=== PATIENT | female | born 1940 | race Caucasian/White ===

== ENCOUNTER 2025-05-18 14:11 | Outpatient (AMB) | payer MEDICARE, OTHER, SELFPAY ==
--- NOTE | 2025-05-18 14:12 | A.PHYSOV_ITS ---
Vital Signs 05/18/25 14:14 Height 5 ft 2 in Weight 150 lb BMI 27.4 Intake Visit Reasons: PT not working- discuss scheduling injection Intake Note: Patient is a 84 years old female here today to discuss having an injection. Physical therapy is not helping. In Flight Crew Member Required: No Allergies latex Allergy (Unknown, Verified 05/18/25 14:16) Unknown ciprofloxacin (From Cipro) Allergy (Verified 05/18/25 14:16) Unknown HPI Comments Details: History of Present Illness The patient is an 84 year old female presenting for evaluation of chronic low back pain. Her pain has recently worsened, now described as located centrally across the lower back and sometimes on the right side, which differs from her previous left-sided symptoms. She reports a recent episode where the pain was so severe she was unable to walk. Patient underwent transforaminal injection 2 years ago very good relief of her symptoms. Unfortunately interlaminar injection was not helpful. Her history is significant for a prior left-sided injection on 's Day of the previous year which provided her with significant relief for approximately two years. A subsequent central interlaminar injection in May was not effective. 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 She was previously advised by another physician that she is not a candidate for surgery due to the extensive damage in her back. The patient is currently attending physical therapy, which she finds helpful. For self-management of pain, she has used Tylenol and aspirin with intermittent effectiveness. She has a history of transient ischemic attacks (TIAs) and has stopped taking her aspirin in anticipation of a potential procedure. Her pain level today is a 7/10 she would like to consider repeat epidural injection. Results - MRI Lumbar Spine: Shows severe interneural foraminal stenosis on the left at L4-L5. [facility] Surgical History History of cancer surgery Social History Alcohol intake: current Alcohol intake frequency: does not drink Patient Tobacco Use Status: Never used Tobacco Review of Systems Narrative Review of Systems - Musculoskeletal: Reports worsening low back pain, described as centrally located and sometimes on the right side. - Denies her arthritic pain is as severe as her nerve pain. - Reports recent severe pain that impeded her ability to walk. - Neurological: Reports a history of left-sided sciatica but states her current pain is primarily in the low back rather than the leg. Physical Exam Exam Exam: Physical Exam Lumbar Spine: Examination of the lumbar spine, there is no visible swelling or deformity. She is tender to lower lumbar facets. She is otherwise nontender. Full range of motion of the lumbar spine. She does have an increase in pain wit h facet loading. Special Tests: Lhermittes sign was negative Heel Toe walk is normal Left straight leg raise: Negative Right straight leg raise: Positive right Special tests Wagner test is negative Ganslen's test is negative SI Joint compression test negative Juanito test negative Piriformis stretch is negative Lower Extremities: Full range of motion bilateral lower extremities. No calf pain or edema. Neuro: Sensation: Intact to lower extremities bilaterally Strength L2 (Psoas): 5/5 on the left and 5/5 on the right. L3 (Quads): 5/5 on the left and 5/5 on the right. L4 (Ant tibialis): 5/5 on the left and 5/5 on the right. L5 (EHL) 5/5 on the left and 5/5 on the right. S1 (Gastroc): 5/5 on the left and 5/5 on the right. DTR L4: (Patellar) Left 2 Right 2 S1: (Achilles) Left 2 Right 2 Babinski Downgoing No pathologic clonus. No involuntary movement. Vital Signs: BMI result Body Mass Index 27.4 Assessment & Plan Assessment & Plan (1) Lumbar radiculopathy: Code(s): M54.16 - Radiculopathy, lumbar region Category: Medical (2) Lumbar spondylosis: Code(s): M47.816 - Spondylosis without myelopathy or radiculopathy, lumbar region Category: Medical Plan Plan Patient was informed and verbally consented to the use of an ambient scribe for clinic note documentation during this visit. 1. 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 Given her history of a successful left-sided transforaminal epidural steroid injection and an unsuccessful central interlaminar injection, a bilateral L4-L5 transforaminal epidural steroid injection is proposed to address her current symptoms. This approach aims to replicate the previously effective procedure while also targeting potential pain sources on both sides. The option of performing the procedure under sedation was discussed due to the high likelihood of procedural pain, especially since it involves two separate injections. The patient will consider this option and will call the office to schedule if she chooses to proceed. She has been instructed to remain off aspirin for seven days prior to the procedure if she decides to have it done. Discussion Notes I discussed with the patient that her current pain is more central and sometimes on the right, which is different from the left-sided pain that was previously relieved by a transforaminal injection. I explained that because a prior central injection was ineffective, I recommend a bilateral transforaminal epidural steroid injection at L4-5 to target the nerve roots on both sides, which is more likely to address her current pain pattern. We had a detailed discussion regarding the procedure itself, and I noted that there is a high potential for pain during the injection, especially since it would be performed twice (once on each side). I offered the option of having the procedure done with sedation for comfort, which she seemed to prefer. I clearly stated that there is no guarantee of success or duration of relief, referencing her past experiences where one injection worked well and another did not. The patient was not ready to make a decision during the visit. I advised her to take time to think about it and to call the office to schedule if she decides to proceed with the bilateral injection. Patient Instructions - We discussed treating your low back pain with a steroid injection procedure on both the left and right sides of your lower back. - This is a similar type of shot to the one that worked well for you in the past. - Because this procedure can be painful, we talked about the option of having it done with sedation (being asleep ) to keep you comfortable. - Please be aware that there is no guarantee this procedure will relieve your pain or for how long. - Take your time to decide if you want to have this procedure. There is no need to ramos. - If you decide to go forward with the injection, please call our office to schedule it. - If you schedule the injection, you must stop taking aspirin 7 days before your appointment. - Continue with your physical therapy, as you have found it to be helpful. Coding Level of Care Code Est Pt Level 3 (83484) Diagnoses Lumbar radiculopathy M54.16 Lumbar spondylosis M47.816
[2025-05-18 14:14] VITALS: BMI 27.4
--- OUTSIDE RECORDS SUMMARY | 2025-05-18 17:57 | XMS_ITS | Clinical Summary ---
Author Organization [facility] ity Address [address] [place] [address] Care Team Providers Care Instrument Repairer Helper Name Role Phone Neal Delgado MD Primary Care Provider [phone] Social History Tobacco Use Types Packs/Day Years Used Date Smoking Tobacco: Never Assessed Comments Unknown Sex and Gender Information Value Date Recorded Sex Assigned at Not on file Legal Sex Female 7:21 PM EST Gender Identity Not on file Sexual Orientation Not on file Plan of Treatment Health Maintenance Due Date Last Done Comments DTaP,Tdap,and Td Vaccines (1 - Tdap) 07/30/1959 Pneumococcal Vaccine: 50+ Ye ars (1 of 1 - PCV) 1990 Zoster Vaccines (1 of 2) 1990 RSV Immunization Adult Patie nts (1 - 1-dose 75+ series) 07/30/2015 Cholesterol Screening (Lipid Panel) 04/21/2022 Falls Risk Assessment 04/21/2022 Social Influencers of Health Screening 04/21/2022 Depression Screening 05/20/2024 COVID-19 Vaccine ( - 2024-2 6 season) 2025 Influenza Vaccine (#1) 2025 03/13/2013 Osteoporosis Screening (Bone Density Screening) 06/18/2033 06/18/2023 HIB Vaccines Aged Out No longer eligi ble based on patient's age to complete this topic HPV Vaccines Aged Out No longer eligi ble based on patient's age to complete this topic Hepatitis A Vaccines Aged Out No long er eligible based on patient's age to complete this topic Hepatitis B Vaccines Aged Out No long er eligible based on patient's age to complete this topic IPV Vaccines Aged Out No longer eligi ble based on patient's age to complete this topic MMR Vaccines Aged Out No longer eligi ble based on patient's age to complete this topic Meningococcal ACWY Vaccine Aged Out N o longer eligible based on patient's age to complete this topic Meningococcal B Vaccine Aged Out No l onger eligible based on patient's age to complete this topic RSV Immunization Patients Un cristina 20 months Aged Out No longer eligible b ased on patient's age to complete this topic Varicella Vaccines Aged Out No longer eligible based on patient's age to complete this topic Procedures Procedure Name Priority Date/Time Associated Diagnosis Comments [facility] DEXA AXIAL SKELETON Routine 06/18/2023 11:27 AM EST Age-related osteoporosis without current pathological fracture from Last 3 Months or Most Recently Relevant to Health Maintenance Results * [facility] DEX[facility] AXIAL SKELETON (06/18/2023 11:27 AM EST) Anatomical Region Laterality Modality Mammography 06/18/2023 10:3 4 AM EST Narrative 06/18/2023 11:27 AM EST [facility] Diagnostic Imaging Department [address] [place] [address] Patient: JOSEPHINE SALMON Delfino /Age/Sex: 1940 - 82 - F Unit#: [id number] Location/Status: [facility]/REG CLI Mnemonic/Ordering Site: [facility]X/SP[facility]AM Ordering Physician: SHYAM PACHECO MD [facility] Dexa Axial Skeleton - 06/18/23 - 1110 Report Status:Signed HISTORY: The patient is an 82-year-old postmenopausal female with clinical concern for metabolic bone disease. FINDINGS: Dual energy x-ray absorptiometry of the lumbar spine and femurs is performed. The mean bone mineral density at L2-3 is 0.725 gm/cm2 which is 60% of that of young normals and 73% of that of age matched controls. This yields a T- score of -4.0 and a Z-score of -2.2 which is diagnostic of osteoporosis. The mean bone mineral density of the femurs bilaterally is 0.720 gm/cm2 which is 71% of that of young normals and 96% of that of age matched controls. This yields a T-score of -2.3 and a Z-score of -0.2 which is diagnostic of osteopenia. However, the T-score of the left femoral neck is -2.5 which is diagnostic of osteoporosis. IMPRESSION: 1. Osteoporosis. There has been a decrease of 7.5% in bone mineral density in the lumbar spine since the prior examination of 10/08/2014. There has been an increase of 1.2% in bone mineral density in the right femur and a decrease of 3.3% in bone mineral density in the left femur. 2. FRAX analysis yields a 10-year probability of major osteoporotic fracture of 42.6% and a 10-year probability of hip fracture of 29.0%. Code 39615 Dictating Physician: IVONE HUERTA MD Electronically Signed by: IVONE HUERTA MD Dic Date/Time: 06/18/23 1125 Sign date/Time: 06/18/23 1127 Procedure Note Ivone Huerta MD - 01/06/2024 [facility] Diagnostic Imaging Department [address] [place] [address] Patient: JOSEPHINE SALMON Delfino MeyersB./Age/Sex: 1940 - 82 - F Unit#: [id number] Location/Status: [facility]/REG CLI Mnemonic[facility] Ordering Physician: SHYAM PACHECO MD [facility] Dexa Axial Skeleton - 06/18/23 - 1110 Report Status:Signed HISTORY: The patient is an 82-year-old postmenopausal female withclinical concern for metabolic bone disease. FINDINGS: Dual energy x-ray absorptiometry of the lumbar spine and femursis performed. The mean bone mineral density at L2-3 is 0.725 gm/cm2 which is60% of that of young normals and 73% of that of age matched controls. This yieldsa T- score of -4.0 and a Z-score of -2.2 which is diagnostic of osteoporosis. The mean bone mineral density of the femurs bilaterally is 0.720 gm/aj0felnk is 71% of that of young normals and 96% of that of age matched controls.This yields a T-score of -2.3 and a Z-score of -0.2 which is diagnostic of osteopenia. However, the T-score of the left femoral neck is -2.5 whichis diagnostic of osteoporosis. IMPRESSION: 1. Osteoporosis. There has been a decrease of 7.5% in bone mineraldensity in the lumbar spine since the prior examination of 10/08/2014. There has beenan increase of 1.2% in bone mineral density in the right femur and a decreaseof 3.3% in bone mineral density in the left femur. 2. FRAX analysis yields a 10-year probability of major osteoporoticfracture of 42.6% and a 10-year probability of hip fracture of 29.0%. Code 65543 Dictating Physician: IVONE HUERTA MD Electronically Signed by: IVONE HUERTA MD Dic Date/Time: 06/18/23 1125 Sign date/Time: 06/18/23 1127 us Shyam Pacheco MD [facility] BI PROCEDURES Final Res ult from Last 3 Months or Most Recently Relevant to Health Maintenance Care Teams Instrument Repairer Helper Relationship Specialty Start Date End Date Neal Delgado MD [address] [place] [address] PCP - General Internal Medicine 02/05/12
--- OUTSIDE RECORDS SUMMARY | 2025-05-18 17:57 | XMS_ITS | Encounter Summary ---
Author Organization [facility] Address [address] [place] [address] Phone Care Team Providers Care Newspaper Manager Name Role Phone Neal Delgado MD Primary Care Provider + Andrew Toney MD Unavailable [phone] Elizabeth Eason MD Unavailable [phone] Geetha Clark NP Primary Care Provider Encounter Details Date Type Department Care Team (Late st Contact Info) Description 12/11/2019 Orders Only [facility] [address] [place] [address] Eryn Oliveros MD, MPH [address] [place] [address] [email or web address] Pelvic mass Social History Tobacco Use Types Packs/Day Years Used Date Smoking Tobacco: Former Cigarettes 3 20 1 957 - 1976 Smokeless Tobacco: Never Alcohol Use Standard Drinks/Week Comments No 0 (1 standard drink = 0.6 oz pur e alcohol) Quit 1976 Comments Unknown Sex and Gender Information Value Date Recorded Sex Assigned at Not on file Legal Sex Female 9:56 AM EST Gender Identity Not on file Sexual Orientation Not on file documented as of this encounter Plan of Treatment Upcoming Encounters Date Type Department Care Team (Late st Contact Info) Description 06/24/2025 3:00 PM EST Office Visit [facility] Endocrinology Clinic [address] [place] [address] Bean Gillis DO [address] [place] [address] [email or web address] 11/29/2025 1:10 PM EDT Blood Draw Laboratory Services, [facility] [address] 2nd [place] [address] Marquita Perez MD [address] [place] [address] [email or web address] 11/29/2025 2:15 PM EDT Office Visit [facility], [facility], [facility] [address], 10th [place] [address] Marquita Perez MD [address] [place] [address] [email or web address] documented as of this encounter Procedures Procedure Name Priority Date/Time Associated Diagnosis Comments US PELVIS Routine 12/11/2019 1:21 PM EDT Pelvic mass documented in this encounter Results * US Pelvis (12/11/2019 1:21 PM EDT) Anatomical Region Laterality Modality Pelvis, Uterus/Adnexa Ultrasound Diagnostic us Govind Almaraz MD [facility] US PELVIS Final Result documented in this encounter Visit Diagnoses Diagnosis Pelvic mass Abdominal or pelvic swelling, mass or lump, unspecified site documented in this encounter Additional Health Concerns Infection Onset Date Last Indicated Resolved Time CoV-Presumed Comment:Reported that patient tested pos at [facility] on 04/12/22, sx onset 04/10/22. No record of testing in chart to date. 04/10/2022 04/13/2022 04/30/2022 1:3 2 AM EST documented as of this encounter Care Teams Newspaper Manager Relationship Specialty Start Date End Date Neal Delgado MD [address] [place] [address] & [place] [address] PCP - General Internal Medicine 06/16/18 01/14/23 Geetha Clark NP [address] [place] [address] PCP - General Nurse Practitioner 01/15/23 Andrew Toney MD [address] [place] [address] Family Medicine [place] [address] Referring OBGYN Obstetrics and Gynecology 06/20/18 Elizabeth Eason MD [address] [place] [address] Referring Physician Dermatology 03/27/19 documented as of this encounter Additional Source Comments The information contained in this document represents components of the legal health record. It is not the complete legal health record.[facility]
--- OUTSIDE RECORDS SUMMARY | 2025-05-18 17:57 | XMS_ITS | Encounter Summary ---
Author Organization [facility] Address [address] [place] [address] Phone Care Team Providers Care Brand Recorder Name Role Phone Neal Delgado MD Primary Care Provider + Andrew Toney MD Unavailable [phone] Elizabeth Eason MD Unavailable [phone] Geetha Clark NP Primary Care Provider Encounter Details Date Type Department Care Team (Late st Contact Info) Description 03/26/2022 Procedure Pass [facility] Periop [address] [place] [address] Social History Tobacco Use Types Packs/Day Years Used Date Smoking Tobacco: Former Cigarettes 3 20 1 957 - 1976 Smokeless Tobacco: Never Alcohol Use Standard Drinks/Week Comments No 0 (1 standard drink = 0.6 oz pur e alcohol) Quit 1976 Comments No Sex and Gender Information Value Date Recorded Sex Assigned at Not on file Legal Sex Female 9:56 AM EST Gender Identity Not on file Sexual Orientation Not on file documented as of this encounter Plan of Treatment Upcoming Encounters Date Type Department Care Team (Late st Contact Info) Description 06/24/2025 3:00 PM EST Office Visit [facility] Endocrinology Clinic [address] [place] [address] Bean Gillis DO [address] [place] [address] [email or web address] 11/29/2025 1:10 PM EDT Blood Draw Laboratory Services, [facility] [address] 2nd [place] [address] Marquita Perez MD [address] [place] [address] [email or web address] 11/29/2025 2:15 PM EDT Office Visit [facility], [facility], [facility] [address], 10th [place] [address] Marquita Perez MD [address] [place] [address] [email or web address] documented as of this encounter Visit Diagnoses Not on filedocumented in this encounter Additional Health Concerns Infection Onset Date Last Indicated Resolved Time CoV-Presumed Comment:Reported that patient tested pos at [facility] on 04/12/22, sx onset 04/10/22. No record of testing in chart to date. 04/10/2022 04/13/2022 04/30/2022 1:3 2 AM EST documented as of this encounter Care Teams Brand Recorder Relationship Specialty Start Date End Date Neal Delgado MD [address] [place] [address] Family Medicine & [place] [address] PCP - General Internal Medicine 06/16/18 01/14/23 Geetha Clark NP [address] [place] [address] PCP - General Nurse Practitioner 01/15/23 Andrew Toney MD [address] [place] [address] Family Medicine & [place] [address] Referring OBGYN Obstetrics and Gynecology 06/20/18 Elizabeth Eason MD [address] [place] [address] Referring Physician Dermatology 03/27/19 documented as of this encounter Additional Source Comments The information contained in this document represents components of the legal health record. It is not the complete legal health record.[facility]
--- OUTSIDE RECORDS SUMMARY | 2025-05-18 17:57 | XMS_ITS | Encounter Summary ---
Author Organization [facility] Address [address] [place] [address] Phone Care Team Providers Care Director Of Ancillary Services Name Role Phone Neal Delgado MD Primary Care Provider + Andrew Toney MD Unavailable Elizabeth Eason MD Unavailable [phone] Geetha Clark NP Primary Care Provider Encounter Details Date Type Department Care Team (Late st Contact Info) Description 12/12/[address] [facility] Periop [address] [place] [address] Social History Tobacco Use Types Packs/Day Years [...] Description 06/24/2025 3:00 PM EST Office Visit [facility] Endocrinology Clinic [address] [place] [address] Bean Gillis DO [address] [place] [address] [email or web address] 11/29/2025 1:10 PM EDT Blood Draw Laboratory Services, [facility] [address], 2nd [place] [address] Marquita Perez MD [address] [place] [address] [email or web address] 11/29/2025 2:15 PM EDT Office Visit [facility], [facility], [facility] [address], 10th [place] [address] Marquita Perze MD [address] [place] [address] [email or web address] documented as of this encounter Visit Diagnoses Not on filedocumented in this encounter Additional Health Concerns Infection Onset Date Last Indicated Resolved Time CoV-Presumed Comment:Reported that patient tested pos at [facility] on 04/12/22, sx onset 04/10/22. No record of testing in chart to date. 04/10/2022 04/13/2022 04/30/2022 1:3 2 AM EST documented as of this encounter Care Teams Director Of Ancillary Services Relationship Specialty Start Date End Date Neal Delgado MD [address] [place] [address] Family Medicine & [place] [address] PCP - General Internal Medicine 06/16/18 01/14/23 Geetha Clark NP [address] [place] [address] PCP - General Nurse Practitioner 01/15/23 Andrew Toney MD [address] [place] [address] Family Medicine [place] [address] Referring OBGYN Obstetrics and Gynecology 06/20/18 Elizabeth Eason MD [address] [place] [address] Referring Physician Dermatology 03/27/19 documented as of this encounter Additional Source Comments The information contained in this document represents components of the legal health record. It is not the complete legal health record.[facility]
--- OUTSIDE RECORDS SUMMARY | 2025-05-18 17:57 | XMS_ITS | Encounter Summary ---
Author Organization [facility] Address [address] [place] [address] Phone Care Team Providers Care Private Banker Name Role Phone Neal Delgado MD Primary Care Provider + Andrew Toney MD Unavailable Elizabeth Eason MD Unavailable [phone] Geetha Clark NP Primary Care Provider Encounter Details Date Type Department Care Team (Late st Contact Info) Description 12/12/2021 Procedure Pass [facility]'s Judo Teacher [address] [address] Social History Tobacco Use Types Packs/Day Years Used Date Smoking Tobacco: Former Cigarettes 3 1 7 1976 Smokeless Tobacco: Never Alcohol Use Standard [...] Description 06/24/2025 3:00 PM EST Office Visit [facility] [address] [place] [address] [place] [address] Bean Gillis DO [address] [place] [address] 11/29/2025 1:10 PM EDT Blood Draw Laboratory Services, [facility] [address] [facility], 2nd Floor [place], [place] Marquita Perez MD [address] [place] [address] [email or web address] 11/29/2025 2:15 PM EDT Office Visit [facility], [facility] [place] [facility], [facility] [address] [facility], 10th [place] [address] Marquita Perez MD [address] [place] [address] [email or web address] documented as of this encounter Visit Diagnoses Not on filedocumented in this encounter Additional Health Concerns Infection Onset Date Last Indicated Resolved Time CoV-Presumed Comment:Reported that patient tested pos at [facility] on 04/12/22, sx onset 04/10/22. No record of testing in chart to date. 04/10/2022 04/13/2022 04/30/2022 1:3 2 AM EST documented as of this encounter Care Teams Private Banker Relationship Specialty Start Date End Date Neal Delgado MD [address] [place] [address] Family Medicine & [place] [address] PCP - General Internal Medicine 06/16/18 01/14/23 Geetha Clark NP [address] [place] [address] PCP - General Nurse Practitioner 01/15/23 Andrew Toney MD [address] [place] [address] Family Medicine & [place] [address] Referring OBGYN Obstetrics and Gynecology 06/20/18 Elizabeth Eason MD [address] [place] [address] Referring Physician Dermatology 03/27/19 documented as of this encounter Additional Source Comments The information contained in this document represents components of the legal health record. It is not the complete legal health record.[facility]
--- OUTSIDE RECORDS SUMMARY | 2025-05-18 17:57 | XMS_ITS | Clinical Summary ---
Author Organization [facility] Address [address] [place] [address] Care Team Providers Care Cloth Bleaching Range Operator Chief Name Role Phone Unavailable Primary Care Provider Unavailabl e Social History Tobacco Use Types Packs/Day Years Used Date Smoking Tobacco: Never Assessed Comments Unknown Sex and Gender Information Value Date Recorded Sex Assigned at Not on file Legal Sex Female 2:17 PM EDT Gender Identity Not on file Sexual Orientation Not on file Plan of Treatment Health Maintenance Due Date Last Done Comments Advance Care Planning 1940 DTaP/Tdap/Td Vaccines (1 - Tdap) 07/30/1959 Pneumococcal Vaccines 50+ (1 of 1 - PCV) 1990 Zoster (Shingles) Vaccine (1 of 2) 1990 RSV Vaccine 50 years and old er and Patients (1 - 1-dose 75+ series) 07/30/2015 COVID-19 Vaccine ( - 2024-2 6 season) 2025 Hepatitis B Vaccines Aged Out No long er eligible based on patient's age to complete this topic
--- OUTSIDE RECORDS SUMMARY | 2025-05-18 17:57 | XMS_ITS | Patient Health Record ---
Author Organization [facility] Ur[facility] - [facility] Address [address] [place] [address] Care Team Providers Care Compound Machine Operator Name Role Phone Gala Morales Unavailable [phone] Allergies Allergen (clinical drug ingredient) Drug/Non Drug Allergy documented on EMR Reaction Allergy Type Onset Date Status ciprofloxacin Cipro Unknown Drug Allergy Act francisco contrast dye (uncoded) Unknown Allergy Active Latex latex (uncoded) Unknown Allergy Acti ve Reason For Referral No Information Medications Medication SIG (Take, Route, Frequency, Duration) Notes Start Date End Date Status Keflex 500 mg 1 cap(s) orally 4 ti mes a day; Duration: 5 day(s) 07/13/2021 Active levothyroxine Active Vitamin B12 Active Plan Of Treatment No Information Insurance Providers Payer Name Payer Address Payer Phone Subscriber Number Group Number Insured Name Patient Relationship to Insured Coverage Start Date Coverage End Date Medicare [address] [address] [place] [address] [id number] Josephine Salmon Self - patient is the insured [address] [address] [place] [address] [phone] [id number] Josephine Salmon Self - patient is the insured Medical (General) History Medical History History ICD Code Allergies Anemia Arthritis Cataracts Surgical History Surgery Date(Month/Year) Cataract Surgery Joint Replacement(s)
--- OUTSIDE RECORDS SUMMARY | 2025-05-18 17:57 | XMS_ITS | Clinical Summary ---
Author Organization [facility] Address [address] [place] [address] Phone Care Team Providers Care Chemical Process Project Engineer Name Role Phone Andrew Toney MD Unavailable Elizabeth Eason MD Unavailable [phone] Geetha Clark NP Primary Care Provider Allergies Active Allergy Reactions Criticality Noted Date Comments Ciprofloxacin 12/08/2021 Dye 06/17/2018 Patient reports that all dyes are not tolerated per her report. 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 Indications: prevention of transient ischemic attack Active cyanocobalamin, vitamin B-12, 1,[address] 1,000 mcg under the tongue daily. Active levothyroxine (SYNTHROID, LEVOTHROID) 75 MCG tabletIndication s:Hypothyroidism , unspecified type Take 1 tablet (75 mcg total) by mouth every morning. 90 tablet 3 5 Active vitamin A 48669 UNIT capsuleIndicatio ns:Hair loss Take 1 capsule (10,000 Units total) by mouth daily. 90 capsule 1 5 Active selenium 200 mcg tabletIndication s:Hair loss 1 tablet every 4 days 21 tablet 3 5 Active Active Problems Problem Noted Date Diagnosed Date Hair loss 08/02/2023 Assessment & Plan (02/22/2025 2:17 PM EDT): She is not having as much hair loss as before vitamin A levels are now in the reference range and she should continue her vitamin A supplements. Selenium is still low so she either finds the 50 mcg pharmacy or takes avwy-qjy-wfgfyoj 200 mcg 1 tablet twice a week. The other thing she could do is have [place] nuts for nuts per week. Assessment & Plan (11/10/2024 12:53 PM EDT): She has 3 reasons for hair loss high B12 she needs to cut back the B12 to 1 every other day. Vitamin A deficiency I prescribed 3000 mcg of vitamin a and she should repeat level prior to the follow-up visit. Also selenium is low so I prescribed selenium supplements and again she should repeat selenium level prior to the follow-up visit in 3 months. Assessment & Plan (08/02/2023 12:10 PM EDT): Patient complains of hair loss is not related to thyroid condition because her thyroid functions are fine. So I will do biochemical testing to evaluate other conditions associated with hair loss. She must do lab work fasting soon after waking up. I have given the patient a follow-up appointment in 1 year. She will check her labs and the patient portal. If the results are normal then she does not have to come back. But if she has any abnormalities then she should schedule follow-up for hair loss. In the meantime she will follow in 1 year for hypothyroidism. 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 Assessment & Plan (11/10/2024 12:52 PM EDT): Chemically and clinically euthyroid continue levothyroxine 75 mcg repeat thyroid function studies in 1 year. Assessment & Plan (08/02/2023 12:08 PM EDT): Chemically euthyroid clinically for the most part she is fine but that has dry skin. She is losing her hair and I do not think is due to her thyroid condition so I will do a workup for hair loss. Assessment & Plan (04/18/2023 3:08 PM EST): She is now in a subclinical hypothyroid state but she has not been 100% compliant with her medications may miss 1 to twice a week and also the times that she takes it may not wait 45 minutes or even 30 minutes before eating. So she needs to start taking the medication properly. I am not going to change the dose she should continue levothyroxine 75 mcg and repeat the thyroid function studies in 3 months. Recall that on 88 mcg in the past her TSH was suppressed so I do not see the point increasing the medication again. She informs me that she is going to [place] in May. I suggest that she get a doctor in [place] to check her thyroid function studies. 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 She is overmedicated with levothyroxine and she is on 88 mcg daily now and has been on it for approximately 3 months. Lab work last month showed that she is in the hyperthyroid state. I will decrease the dose to 75 mcg. This probably still too much medication but I have to gradually decrease the dose of the medication so that she does not feel sick. She has been in a hyperthyroid state for a long period of time. So we have to gradually decrease this medication. She should repeat thyroid function studies in 3 months. Once her thyroid functions normalize hopefully her hair will regrow. 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 TIA (transient ischemic attack) Bilateral ovarian cysts Encounters Date Type Department Care Team Description 02/24/2025 Orders Only [facility] [address] [place] [address] Bean Gillis DO Hair loss (Primary Dx) 02/24/2025 Telephone [facility] Endocrinology [facility] [address] [place] [address] Ml Sanderson CMA Medication Management (selenium) 02/22/2025 1:40 PM EDT Office Visit [facility] Endocrinology [facility] [address] [place] [address] Bean Gillis DO Hypothyroidism, unspecified type (Primary Dx); Hair loss 02/16/2025 3:39 PM EDT - 02/16/2025 11:59 PM EDT Hospital Encounter [facility] [address] [place] [address] Bean Gillis DO Discharge Disposition: Home or Self Care from Last 3 Months Family History Medical History Relation Comments Heart disease Sister Skin cancer (non-melanoma) Sister Relation Status Comments Brother 1 Alive Brother 2 Alive Father (Age 92) Mother (Age 91) Sister Alive Social History Tobacco Use Types Packs/Day Years Used Date Smoking Tobacco: Former Cigarettes 3 20 1 957 - 1976 Smokeless Tobacco: Never Tobacco Cessation:Counseling Given: Not Answered Alcohol Use Standard Drinks/Week Comments No 0 (1 standard drink = 0.6 oz pur e alcohol) Quit 1976 Education Answer Date Recorded Are you interested in more education? Not on brandon e 09/14/2022 Are you concerned about learning? Not on file 09/14/2022 No 09/14/2022 No 09/14/2022 Digital Access Answer Date Recorded No 10/16/2022 No 10/16/2022 Reliable internet access at home? Not on file 10/16/2022 Device with a working camera? Not on file Comments No Sex and Gender Information Value Date Recorded Sex Assigned at Not on file Legal Sex Female 9:56 AM EST Gender Identity Not on file Sexual Orientation Not on file Last Filed Vital Signs Vital Sign Reading Time Taken Comments Blood Pressure 108/78 02/22/2025 1:47 PM EDT Pulse 92 02/22/2025 1:47 PM EDT Temperature 36.4 C (97.6 F) 11/30/2024 2:31 PM EDT Respiratory Rate 16 11/30/2024 2:31 PM EDT Oxygen Saturation 96% 11/30/2024 2:32 PM EDT Inhaled Oxygen Concentration - - Weight 69.9 kg (154 lb) 02/22/2025 1:47 PM EDT Height 157.5 cm (5' 2.01 ) 02/22/2025 1:47 PM ED T Body Mass Index 28.16 02/22/2025 1:47 PM EDT Plan of Treatment Upcoming Encounters Date Type Department Care Team (Late st Contact Info) Description 06/24/2025 3:00 PM EST Office Visit [facility] [address] [place] [address] Bean Gillis DO [address] [place] [address] 11/29/2025 1:10 PM EDT Blood Draw Laboratory Services, [facility] [address] [facility], 2nd [place] [address] Marquita Perez MD [address] [place] [address] 11/29/2025 2:15 PM EDT Office Visit [facility] for Gynecologic Oncology, Josephine Wells [place] [facility], [facility] [address] [facility], 10th [place] [address] Marquita Perez MD [address] [place] [address] [email or web address] Health Maintenance Due Date Last Done Comments Adult Td,Tdap Booster 1940 PNEUMOCOCCAL VACCINES (50+ years) (1 of 2 - PCV) 07/30/1959 ZOSTER VACCINES (1 of 2) 07/30/1959 OSTEOPOROSIS SCREENING INITI AL (ONE-TIME) 2005 RSV VACCINE (1 - 1-dose 75+ series) 07/30/2015 DEPRESSION SCREENING 12/12/2022 12/12/2021 INFLUENZA VACCINE (#1) 2024 03/13/2013 COVID-19 VACCINE (1 - 2024-2 6 season) 2025 TSH LEVEL 11/09/2025 11/09/2024, 07/22/2023, 04/15/2023 HEPATITIS A VACCINES Aged Out No long er eligible based on patient's age to complete this topic HIB VACCINES Aged Out No longer eligi ble based on patient's age to complete this topic MENINGOCOCCAL VACCINES (ACWY) Aged Out No longer eligible based on patient's age to complete this topic MENINGOCOCCAL VACCINES (B) Aged Out N o longer eligible based on patient's age to complete this topic Medical Devices Not on file Procedures Procedure Name Priority Date/Time Associated Diagnosis Comments VITAMIN A Routine 02/16/2025 4:03 PM EDT Hair loss SELENIUM Routine 02/16/2025 4:03 PM EDT Hair loss VITAMIN B12 Routine 02/16/2025 4:03 PM EDT Hair loss THYROID STIMULATING HORMONE (TSH) Routine 11/09/2024 1:07 PM EDT Hypothyroidism, unspecified type from Last 3 Months or Most Recently Relevant to Health Maintenance Results * Vitamin A (02/16/2025 4:03 PM EDT) VITAMIN A 41.6 32.5 - 78.0 mcg/dL [facility]PATH SUPERIOR Comment: (NOTE) ADDITIONAL INFORMATION This test was developed and its performance characteristics determined by [facility] in a manner consistent with CLIA requirements. This test has not been cleared or approved by the U.S. Food and Drug Administration. Blood 02/16/2025 4:03 PM EDT 02/16/2025 4:12 PM EDT Bean Gillis DO LAB BLOOD ORDERABLES Final Resul t [facility] LAB MED/PATH [address] [place] [address] * (ABNORMAL) Selenium (02/16/2025 4:03 PM EDT) [facility] SELENIUM, SERUM 109(L) 110 - 165 mcg/L [facility] MED/PATH SUPERIOR Comment: (NOTE) ADDITIONAL INFORMATION This test was developed and its performance characteristics determined by [facility] in a manner consistent with CLIA requirements. This test has not been cleared or approved by the U.S. Food and Drug Administration. Blood 02/16/2025 4:03 PM EDT 02/16/2025 4:12 PM EDT Bean Gillis [facility] BLOOD ORDERABLES Final Resul t Performing Organization Address [facility] de Phone Number [facility] LAB MED/PATH [address] [place] [address] * Vitamin B12 (02/16/2025 4:03 PM EDT) [facility] VITAMIN B12 1,124 232 - 1,245 pg/mL [facility] Blood 02/16/2025 4:03 PM EDT 02/16/2025 4:11 PM EDT Bean Gillis [facility] BLOOD BKR ORDERABLES Final R esult Performing Organization Address [facility] Co de Phone Number [facility] [address] [place] [address] * TSH (11/09/2024 1:07 PM EDT) [facility] TSH 3.87 0.27 - 4.20 uIU/mL [facility] Blood 11/09/2024 1:07 PM EDT 11/09/2024 1:12 PM EDT Bean Gillis DO LAB BLOOD BKR ORDERABLES Final R esult [facility] [address] [place] [address] from Last 3 Months or Most Recently Relevant to Health Maintenance Insurance MEDICARE PART A & [place] [address] MEDICARE PART A & [place] [address] MEDICARE PART A & B [facility] [place] [place] [address] MEDICARE PART A & [place] [address] MEDICARE PART A & [place] [address] MEDICARE PART A & [place] [address] MEDICARE PART A & B [facility] [place] [address] MEDICARE PART A & B [facility] [place] [place] [address] MEDICARE PART A & [place] [address] Care Teams Chemical Process Project Engineer Relationship Specialty Start Date End Date Geetha Clark NP [address] [place] [address] PCP - General Nurse Practitioner 01/15/23 Andrew Toney MD Referring OBGYN Obstetrics and Gynecology 06/20/18 Elizabeth Eason MD [address] [place] [address] Referring Physician Dermatology 03/27/19 Additional Source Comments The information contained in this document represents components of the legal health record. It is not the complete legal health record.[facility]
--- OUTSIDE RECORDS SUMMARY | 2025-05-18 17:57 | XMS_ITS | Encounter Summary ---
Author Organization [facility] Address [address] [place] [address] Phone Care Team Providers Care Watchstander Name Role Phone Neal Delgado MD Primary Care Provider + Andrew Toney MD Unavailable Elizabeth Eason MD Unavailable [phone] Geetha Clark NP Primary Care Provider Encounter Details Date Type Department Care Team (Late st Contact Info) Description 12/12/2021 Procedure Pass [facility] [address] [place] [address] Social History Tobacco Use Types Packs/Day Years Used Date Smoking Tobacco: Former Cigarettes 3 20 1 1976 Smokeless Tobacco: Never Alcohol Use Standard [...] Description 06/24/2025 3:00 PM EST Office Visit [facility] Endocrinology Clinic [address] [place] [address] Bean Gillis DO [address] [place] [address] 11/29/2025 1:10 PM EDT Blood Draw Laboratory Services, [facility] [address] [facility], 2nd [place] [address] Marquita Perez MD [address] [place] [address] [email or web address] 11/29/2025 2:15 PM EDT Office Visit [facility] for [facility] Oncology, Josephine Wells [place] [facility], [facility] [address] [facility], 10th [place] [address] Marquita Perez MD [address] [place] [address] [email or web address] documented as of this encounter Visit Diagnoses Not on filedocumented in this encounter Additional Health Concerns Infection Onset Date Last Indicated Resolved Time 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 No record of testing in chart to date. 04/10/2022 04/13/2022 04/30/2022 1:3 2 AM EST documented as of this encounter Care Teams Watchstander Relationship Specialty Start Date End Date Neal Delgado MD [address] [place] [address] Family Medicine & [place] [address] PCP - General Internal Medicine 06/16/18 01/14/23 Geetha Clark NP [address] [place] [address] PCP - General Nurse Practitioner 01/15/23 Andrew Toney MD [address] [place] [address] Family Medicine [place] [address] Referring OBGYN Obstetrics and Gynecology 06/20/18 Elizabeth Eason MD [facility] [place] [address] Referring Physician Dermatology 03/27/19 documented as of this encounter Additional Source Comments The information contained in this document represents components of the legal health record. It is not the complete legal health record.[facility]
--- OUTSIDE RECORDS SUMMARY | 2025-05-18 17:57 | XMS_ITS | Encounter Summary ---
Author Organization [facility] Address [address] [place] [address] Phone Care Team Providers Care Education Managers Name Role Phone Neal Delgado MD Primary Care Provider + Andrew Toney MD Unavailable [phone] Elizabeth Eason MD Unavailable [phone] Geetha Clark NP Primary Care Provider Encounter Details Date Type Department Care Team (Late st Contact Info) Description 12/12/2021 Procedure Pass [facility]'s Pediatrics Teacher [address] [address] Social History Tobacco Use Types Packs/Day Years [...] Description 06/24/2025 3:00 PM EST Office Visit [facility] Endocrinology Clinic [address] [place] [address] [place] [address] Bean Gillis DO [address] [place] [address] 11/29/2025 1:10 PM EDT Blood Draw Laboratory Services, [facility] [address] [facility], 2nd Floor [place], [place] Marquita Perez MD [address] [place] [address] [email or web address] 11/29/2025 2:15 PM EDT Office Visit [facility] On[facility], Josephine Wells [place] [facility], [facility] [address] [facility], 10th [place] [address] Marquita Perez MD [address] [place] [address] [email or web address] documented as of this encounter Visit Diagnoses Not on filedocumented in this encounter Additional Health Concerns Infection Onset Date Last Indicated Resolved Time 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 No record of testing in chart to date. 04/10/2022 04/13/2022 04/30/2022 1:3 2 AM EST documented as of this encounter Care Teams Education Managers Relationship Specialty Start Date End Date Neal Delgado MD [address] [place] [address] Family Medicine & [place] [address] PCP - General Internal Medicine 06/16/18 01/14/23 Geetha Clark NP [address] [place] [address] PCP - General Nurse Practitioner 01/15/23 Andrew Toney MD [address] [place] [address] Family Medicine & [place] [address] Referring OBGYN Obstetrics and Gynecology 06/20/18 Elizabeth Eason MD [address] [place] [address] Referring Physician Dermatology 03/27/19 documented as of this encounter Additional Source Comments The information contained in this document represents components of the legal health record. It is not the complete legal health record.[facility]
== END 2025-05-18 14:38 | disposition home or self-care (01) ==
LOC: HO.HPHYS 14:11
PROVIDERS: PCP Internal Medicine; Visit Provider Physician Assistant
DX: M54.16 Radiculopathy, lumbar region (principal); M47.816 Spondylosis without myelopathy or radiculopathy, lumbar region
CPT/HCPCS: 99213

== ENCOUNTER → 2025-05-18 14:11 | Outpatient (BNVA) | payer MEDICARE, OTHER, SELFPAY | PROVIDERS: PCP Internal Medicine; Visit Provider Physician Assistant | DX: M54.16 Radiculopathy, lumbar region (principal); M47.816 Spondylosis without myelopathy or radiculopathy, lumbar region | CPT/HCPCS: 99212 ==